=== PATIENT | female | born 1945 | race American Indian/Alaskan Native ===

== ENCOUNTER 2019-12-28 08:55 | Emergency (ER) | payer MEDICARE ==
[2019-12-28 10:10] LABS: Basophils # (Auto) 0.1 K/mm3 (0.0-0.1); Basophils % (Auto) 1.1 % (0.0-1.8); Eosinophils # (Auto) 0.3 K/mm3 (0.0-0.4); Eosinophils % (Auto) 3.5 % (0.0-4.3); Hematocrit 41.5 % (30.3-42.9); Hemoglobin 13.5 gm/dl (10.1-14.3); Lymphocytes # (Auto) 2.5 K/mm3 (1.2-5.4); Mean Corpuscular HGB Conc 33 % (30-34); Mean Corpuscular Volume 87 fl (79-97); Monocytes # (Auto) 0.6 K/mm3 (0.0-0.8); Monocytes % (Auto) 7.2 % (0.0-7.3); Platelet Count 277 K/mm3 (140-440); Red Blood Count 4.79 M/mm3 (3.65-5.03); Red Cell Distribution Width 14.2 % (13.2-15.2)
--- NOTE | 2019-12-28 10:16 | XRay Report ---
CHEST 1 VIEW INDICATION / CLINICAL INFORMATION: gen weakness, body aches. COMPARISON: 10/14/2016 FINDINGS: SUPPORT DEVICES: None. HEART / MEDIASTINUM: Heart size is normal with left ventricular configuration. Thoracic aortic tortuo sity. LUNGS / PLEURA: No significant pulmonary or pleural abnormality. No pneumothorax. ADDITIONAL FINDINGS: No significant additional findings. IMPRESSION: 1. No acute findings. Signer Name: Suman Painter MD Signed: 12/28/2019 10:12 AM Workstation Name: [id number]
--- NOTE | 2019-12-28 10:28 | Emergency Department Report ---
HPI - General Chief Complaint: Weakness Time Seen by Provider: 12/28/19 10:02 - HPI HPI: 74-year-old female presents to the emergency department with a one-month history of intermittent left-sided headache and sensitivity to light. She denies any blurry vision, fever, chest pain, SOB, numbness or paresthesias, slurred speech, or any neurological deficits. This is also associated with some generalized body aches. Patient has a history of arthritis, hypertension and hyperlipidemia. She has been taking some Stanback and Tylenol for her symptoms without any relief, but the symptoms "just stop when they want to stop." She has a primary care physician but has not seen them regarding her symptoms. No recent travel or sick contacts at home. No known exposure to anyone with Covid 19. ED Past Medical Hx - Past Medical History Previous Medical History?: Yes Hx Hypertension: Yes Hx Arthritis: Yes Additional medical history: high cholestrol - Surgical History Past Surgical History?: Yes Additional Surgical History: tubal ligation. tonsillectomy. hysterectomy - Social History Smoking Status: Never Smoker Substance Use Type: None - Medications Home Medications: Home Medications Medication Instructions Recorded Confirmed Last Taken Type Acetaminophen/Codeine [Tylenol 1 tab PO Q6H PRN #10 tab 10/06/16 10/13/16 Unknown Rx /Codeine # 3 tab] Pravastatin Sodium [Pravastatin] 40 mg PO QHS 10/13/16 10/13/16 Unknown History Triamter/Hctz 37.5-25 mg 1 tab PO QDAY 10/13/16 10/13/16 Unknown History [Maxzide-25] ED Review of Systems ROS: Stated complaint: HEADACHE/ BODY ACHE Other details as noted in HPI Comment: All other systems reviewed and negative Constitutional: weakness. denies: chills, fever Eyes: other (photosensitivity). denies: eye pain, vision change ENT: denies: ear pain, throat pain Respiratory: denies: cough, shortness of breath Cardiovascular: denies: chest pain, palpitations Gastrointestinal: denies: abdominal pain, vomiting Genitourinary: denies: dysuria, discharge Musculoskeletal: denies: back pain, arthralgia Skin: denies: change in color, pruritus Neurological: headache. denies: numbness, paresthesias Physical Exam - Physical Exam Vital Signs: Vital Signs 12/28/19 09:02 Temperature 98.4 F Pulse Rate 76 Respiratory 20 Rate Blood Pressure 155/79 O2 Sat by Pulse 96 Oximetry Physical Exam: GENERAL: The patient is well-developed well-nourished. HENT: Normocephalic. Atraumatic. Patient has moist mucous membranes. EYES: Extraocular motions are intact. Pupils equal reactive to light bilaterally. No nystagmus. NECK: Supple. Trachea is midline. CHEST/LUNGS: Clear to auscultation. There is no respiratory distress noted. HEART/CARDIOVASCULAR: Regular. There is no tachycardia. ABDOMEN: Abdomen is soft, nontender. Patient has normal bowel sounds. SKIN: Skin is warm and dry. NEURO: The patient is awake, alert, and oriented. The patient is cooperative. The patient has no focal neurologic deficits. Normal speech. Cranial nerves II through XII grossly intact. No pronator drift or dysmetria. MUSCULOSKELETAL: There is no tenderness or deformity. There is no limitation range of motion. There is no evidence of acute injury. ED Course Vital Signs 12/28/19 09:02 Temperature 98.4 F Pulse Rate 76 Respiratory 20 Rate Blood Pressure 155/79 O2 Sat by Pulse 96 Oximetry ED Medical Decision Making - Lab Data Result diagrams: 12/28/19 09:52 12/28/19 09:52 - EKG Data -: EKG Interpreted by Me EKG shows normal: sinus rhythm, axis, intervals, QRS complexes, ST-T waves Rate: normal - EKG Data When compared to previous EKG there are: previous EKG unavailable Interpretation: normal EKG - Radiology Data Radiology results: report reviewed, image reviewed interpreted by me: Chest x-ray does not show any acute process. There are no pleural effusions, obvious pneumonia and there is no pneumothorax. NONENHANCED CT SCAN OF THE HEAD: INDICATION / CLINICAL INFORMATION: 74 years Female; Headache. TECHNIQUE: Routine CT head without contrast. All CT scans at this location are performed using CT dose reduction for ALARA by means of automated exposure control. COMPARISON: CT scan of the head from 10/13/2016 FINDINGS: BRAIN / INTRACRANIAL CONTENTS: No acute hemorrhage, mass effect, midline shift, hydrocephalus, or acute, large territorial infarct. No chronic infarct or focal atrophy. Normal brain volume and ventricular/sulcal size for age. Nonspecific white matter low-attenuation areas in the left parietal lobe probably due to chronic small vessel disease. High convexity cortical sulci are normal. CRANIOCERVICAL JUNCTION: No significant abnormality. ORBITS: No significant abnormality of visualized orbits. SINUSES / MASTOIDS: No significant abnormality of the visualized paranasal sinuses or mastoid air cells. ADDITIONAL FINDINGS: None. IMPRESSION: No acute parenchymal lesion in the brain CT findings remain unchanged. - Medical Decision Making This patient presents to the emergency department with a one-month history of some intermittent left-sided headache and photosensitivity. On examination the patient does not have any focal, motor or sensory deficits and her cranial nerves are intact. CT scan of the head does not show any bleed, shift, mass, ischemia, or any other acute process. Labs are unremarkable including CBC, metabolic panel, troponin. EKG did not show any signs of ST elevation ND, ischemia or dysrhythmia. Her vital signs were stable throughout her ED course. Patient does have some hypertension but is currently on medication for it. She has good outpatient follow-up with primary care. For all these reasons the patient appears safe for discharge home at this time. She was seen ambulatory in the emergency department and both appears and feels stable. The patient was given outpatient referral for neurology. She will return to the ER with any worsening of her symptoms or any acute distress. Critical Care Time: No Critical care attestation.: If time is entered above; I have spent that time in minutes in the direct care of this critically ill patient, excluding procedure time. ED Disposition Clinical Impression: Intermittent headache Hypertension Qualifiers: Hypertension type: essential hypertension Qualified Code(s): I10 - Essential (primary) hypertension Disposition: TO HOME OR SELFCARE Is pt being admited?: No Condition: Stable Instructions: Acute Headache (ED), Hypertension (ED) Additional Instructions: Please follow-up with your primary care physician in the next few days. Return to the emergency department with any worsening of your symptoms or any acute distress. I am giving you a referral for a local neurologist, Dr. Bretrand, to follow-up regar ding your intermittent headaches. Take your blood pressure medications as prescribed. Try and stay away from foods that are high in salt and caffeinated products. Keep a blood pressure log. Referrals: THIAGO BERTRAND MD [Referring] - 3-5 Days PCP, Your [Other] - 3-5 Days Time of Disposition: 11:26
[2019-12-28 10:34] LABS: Creatine Kinase MB 2.1 ng/mL (0.0-4.0)
[2019-12-28 10:37] LABS: Alanine Aminotransferase 15 units/L (7-56); Albumin 4.1 g/dL (3.9-5); BUN/Creatinine Ratio 14; Blood Urea Nitrogen 13 mg/dL (7-17); Calcium 9.4 mg/dL (8.4-10.2); Hemolysis Index 4
--- NOTE | 2019-12-28 10:41 | Cat Scan Report ---
NONENHANCED CT SCAN OF THE HEAD: INDICATION / CLINICAL INFORMATION: 74 years Female; Headache. TECHNIQUE: Routine CT head without contrast. All CT scans at this location are performed using CT dos e reduction for ALARA by means of automated exposure control. COMPARISON: CT scan of the head from 10/13/2016 FINDINGS: BRAIN / INTRACRANIAL CONTENTS: No acute hemorrhage, mass effect, midline shift, hydrocephalus, or ac carlos, large territorial infarct. No chronic infarct or focal atrophy. Normal brain volume and ventricu lar/sulcal size for age. Nonspecific white matter low-attenuation areas in the left parietal lobe pro bably due to chronic small vessel disease. High convexity cortical sulci are normal. CRANIOCERVICAL JUNCTION: No significant abnormality. ORBITS: No significant abnormality of visualized orbits. SINUSES / MASTOIDS: No significant abnormality of the visualized paranasal sinuses or mastoid air leah ls. ADDITIONAL FINDINGS: None. IMPRESSION: No acute parenchymal lesion in the brain CT findings remain unchanged. Signer Name: Jadiel Cho MD Signed: 12/28/2019 10:36 AM Workstation Name: [id number]
[2019-12-28] MEDS ORDERED: POTASSIUM CHLORIDE ER 20 MEQ TAB PO ONE (10:45)
[2019-12-28] MEDS ORDERED: MAGNESIUM OXIDE 400 MG TAB PO ONE (11:30)
[2019-12-28 12:05] VITALS: BP 163/76
== END 2019-12-28 12:01 | disposition home or self-care (01) ==
LOC: ED 08:55
DX: R51 Headache (principal); I10 Essential (primary) hypertension; M19.91 Primary osteoarthritis, unspecified site; E78.00 Pure hypercholesterolemia, unspecified; Z90.710 Acquired absence of both cervix and uterus; Z90.89 Acquired absence of other organs; Z98.51 Tubal ligation status; Z79.899 Other long term (current) drug therapy
CPT/HCPCS: 36415; 70450; 71045; 80053; 82550; 82553; 83735; 84484; 85025; 93005

== ENCOUNTER 2021-07-05 08:13 | Emergency (ER) | payer MEDICARE ==
--- NOTE | 2021-07-05 09:20 | Emergency Department Report ---
Blank Doc - Documentation Documentation: This is a 75-year-old female that presents with mid and lower back pain times several days. Patient stated the past couple days is getting worse and was seen by her patient stated seeing her primary care doctor and was told that she has a bladder infection. Patient stated symptoms since then has been getting worse. Denies any injuries or trauma. 1- This is a initial triage assessment/medical screening only. Full assessment and work-up will be completed once the patient is in proper hospital gown, ED bed and in a private room setting. This initial assessment/diagnostic orders/clinical plan/ treatment(s) is/are subject to change based on pt's health status, clinical progression and re-assessment by fellow clinical providers in the ED. Further treatment and workup at subsequent clinical providers discretion. Patient/guardians urged not to elope from ED as their condition may be serious if not clinically assessed and managed. 2-cardiac nurse practitioner and workup The patient was evaluated in the emergency department for symptoms described in the history of present illness. He/she was evaluated in the context of the global COVID-19 pandemic, which necessitated consideration that the patient might be at risk for infection with the virus that causes COVID-19. Inst itutional protocols and algorithms that pertain to the evaluation of patients at risk for COVID-19 are in a state of rapid change based on information released by regulatory bodies including the CDC and federal and state organizations. These policies and algorithms were followed during the patient's care in the emergency department. Please note that these policies, procedures and recommendations changed on a rapid basis.
[2021-07-05 09:46] LABS: Basophils # (Auto) 0.2 K/mm3 (0.0-0.1); Basophils % (Auto) 1.8 % (0.0-1.8); Eosinophils # (Auto) 0.3 K/mm3 (0.0-0.4); Hematocrit 42.5 % (30.3-42.9); Hemoglobin 13.7 gm/dl (10.1-14.3); Lymphocytes # (Auto) 2.5 K/mm3 (1.2-5.4); Lymphocytes % (Auto) 25.1 % (13.4-35.0); Mean Corpuscular HGB Conc 32 % (30-34); Mean Corpuscular Volume 87 fl (79-97); Monocytes # (Auto) 0.9 K/mm3 (0.0-0.8); Monocytes % (Auto) 8.7 % (0.0-7.3); Platelet Count 271 K/mm3 (140-440); Red Blood Count 4.89 M/mm3 (3.65-5.03); Red Cell Distribution Width 13.6 % (13.2-15.2)
[2021-07-05 09:49] LABS: Bacteria,Urine 1+ /HPF (Negative); Bilirubin,Urine NEG (Negative); Blood,Urine NEG (Negative); Color,Urine Straw (Yellow); Protein,Urine <15 mg/dL mg/dL (Negative); Urobilinogen,Urine < 2.0 mg/dL (<2.0)
[2021-07-05 09:56] LABS: INR 0.89 (0.87-1.13)
[2021-07-05 09:57] LABS: Partial Thromboplastin Time 33.3 Sec. (24.2-36.6)
--- NOTE | 2021-07-05 10:05 | XRay Report ---
CHEST 2 VIEWS INDICATION: Chest Pain. COMPARISON: 12/28/2019 FINDINGS: Support devices: None. Heart: Within normal limits. Lungs/Pleura: No acute air space or interstitial disease. No significant pleural effusion. IMPRESSION: No acute findings. Signer Name: Jonathan Bhandari MD Signed: 07/05/2021 10:01 AM Workstation Name: [id number]
[2021-07-05 10:10] LABS: Alanine Aminotransferase 14 units/L (7-56); Albumin 3.8 g/dL (3.9-5); Blood Urea Nitrogen 15 mg/dL (7-17); Hemolysis Index 18
[2021-07-05 10:11] LABS: BUN/Creatinine Ratio 21
[2021-07-05] MEDS ORDERED: SODIUM CHLORIDE 0.9% 1000 ML 1,000 ML IV ONE (11:22)
[2021-07-05] MEDS ORDERED: KETOROLAC 30 MG/1 ML INJ IV ONE (11:22)
[2021-07-05] MEDS ORDERED: POTASSIUM CHLORIDE ER 20 MEQ TAB PO ONE (11:23)
--- NOTE | 2021-07-05 11:26 | Emergency Department Report ---
HPI - General Chief Complaint: Back Pain/Injury Time Seen by Provider: 07/05/21 09:14 - HPI HPI: 75-year-old female with history of hypertension, hyperlipidemia, and arthritis presents complaining of approximately 5 days of mid/left-sided low back pain. The patient states that on Tuesday she began to have a dull aching pain in her mid low back. On the pain got worse and radiated into her groin. She describes the pain as a pulling sensation. She saw her primary care doctor and was told that she has a bladder infection. She was given antibiotics which she has been taking since then. However, she says the pain is gotten worse to the point where she can no longer walk and has been using a wheelchair. She denies developing any weakness but says that the disturbance in her walking is because of the pain itself. Denies recent trauma. Denies any other associated symptoms other than the pain including fever/chills, headache, vision change, chest pain, shortness of breath, abdominal pain, nausea/vomiting, dysuria, hematuria, freq uency, vaginal discharge, radiation of pain down the back of her LE, focal weakness, sensory changes, or any other complaints. She has intermittently been taking aspirin without significant relief. There are no known aggravating or alleviating factors. ED Past Medical Hx - Past Medical History Previous Medical History?: Yes Hx Hypertension: Yes Hx Arthritis: Yes Additional medical history: high cholestrol - Surgical History Past Surgical History?: Yes Additional Surgical History: tubal ligation. tonsillectomy. hysterectomy - Social History Smoking Status: Never Smoker Substance Use Type: None - Medications Home Medications: Home Medications Medication Instructions Recorded Confirmed Last Taken Type Acetaminophen/Codeine [Tylenol 1 tab PO Q6H PRN #10 tab 10/06/16 10/13/16 Unknown Rx /Codeine # 3 tab] Pravastatin Sodium [Pravastatin] 40 mg PO QHS 10/13/16 10/13/16 Unknown History Triamter/Hctz 37.5-25 mg 1 tab PO QDAY 10/13/16 10/13/16 Unknown History [Maxzide-25] Cyclobenzaprine [Flexeril] 10 mg PO TID PRN #15 tablet 07/05/21 Unknown Rx cephALEXin [Keflex] 500 mg PO TID #30 cap 07/05/21 Unknown Rx ED Review of Systems ROS: Stated complaint: BACK PAIN Other details as noted in HPI Constitutional: denies: chills, fever Eyes: denies: eye pain, vision change ENT: denies: throat pain, congestion Respiratory: denies: cough, shortness of breath Cardiovascular: denies: chest pain, palpitations Gastrointestinal: other (left flank pain). denies: abdominal pain, nausea, vomiting Genitourinary: denies: dysuria, hematuria, discharge Musculoskeletal: back pain Skin: denies: rash, lesions Neurological: denies: headache, weakness, numbness, paresthesias Hematological/Lymphatic: denies: easy bleeding Physical Exam - Physical Exam Vital Signs: Vital Signs 07/05/21 08:16 Temperature 98.3 F Pulse Rate 80 Respiratory 16 Rate Blood Pressure 147/70 O2 Sat by Pulse 95 Oximetry Physical Exam: GENERAL: Well developed and well nourished. No acute distress HEAD: Normocephalic. No obvious signs of trauma. ENT: Dry mucous membranes. EYES: Extraocular movements are intact. Pupils are equal round and reactive to light bilaterally NECK: Supple. Full ROM is intact. Trachea is midline. LUNGS: Nonlabored breathing. Equal chest rise bilaterally. Clear to auscultation bilaterally. CARDIOVASCULAR: Regular rate and rhythm. No murmurs or rubs. VASCULAR: Cap refill < 2 seconds ABDOMEN: Abdomen is soft and nondistended. There is no significant tenderness, guarding or rebound. SKIN: Skin is warm and dry NEURO: Patient is awake, alert, and oriented. 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 No focal deficits. Normal motor and sensory exam throughout. Normal speech. Negative straight leg raise bilaterally. MUSCULOSKELETAL: No obvious deformities. No significant tenderness. Normal ROM throughout. BACK/SPINE: No midline tenderness or step-offs of the C/T/L spine. No costovertebral angle tenderness. ED Course Vital Signs 07/05/21 08:16 Temperature 98.3 F Pulse Rate 80 Respiratory 16 Rate Blood Pressure 147/70 O2 Sat by Pulse 95 Oximetry ED Medical Decision Making - Lab Data Result diagrams: 07/05/21 09:27 07/05/21 09:27 Lab Results 07/05/21 07/05/21 07/05/21 Range/Units 09:27 09:27 09:27 WBC 10.0 (4.5-11.0) K/mm3 RBC 4.89 (3.65-5.03) M/mm3 Hgb 13.7 (10.1-14.3) gm/dl Hct 42.5 (30.3-42.9) % MCV 87 (79-97) fl MCH 28 (28-32) pg MCHC 32 (30-34) % RDW 13.6 (13.2-15.2) % Plt Count 271 (140-440) K/mm3 Lymph % (Auto) 25.1 (13.4-35.0) % Stewart % (Auto) 8.7 H (0.0-7.3) % Eos % (Auto) 3.0 (0.0-4.3) % Baso % (Auto) 1.8 (0.0-1.8) % Lymph # (Auto) 2.5 (1.2-5.4) K/mm3 Stewart # (Auto) 0.9 H (0.0-0.8) K/mm3 Eos # (Auto) 0.3 (0.0-0.4) K/mm3 Baso # (Auto) 0.2 H (0.0-0.1) K/mm3 Seg Neutrophils % 61.4 (40.0-70.0) % Seg Neutrophils # 6.1 (1.8-7.7) K/mm3 PT 13.1 (12.2-14.9) Sec. INR 0.89 (0.87-1.13) APTT 33.3 (24.2-36.6) Sec. Sodium 142 (137-145) mmol/L Potassium 3.3 L (3.6-5.0) mmol/L Chloride 102.2 (98-107) mmol/L Carbon Dioxide 25 (22-30) mmol/L Anion Gap 18 mmol/L BUN 15 (7-17) mg/dL Creatinine 0.7 (0.6-1.2) mg/dL Estimated GFR > 60 ml/min BUN/Creatinine Ratio 21 % Glucose 93 (65-100) mg/dL Calcium 9.0 (8.4-10.2) mg/dL Total Bilirubin 0.20 (0.1-1.2) mg/dL AST 16 (5-40) units/L ALT 14 (7-56) units/L Alkaline Phosphatase 84 (35-129) units/L Troponin T < 0.010 (0.00-0.029) ng/mL Total Protein 7.2 (6.3-8.2) g/dL Albumin 3.8 L (3.9-5) g/dL Albumin/Globulin Ratio 1.1 % Urine Color (Yellow) Urine Turbidity (Clear) Urine pH (5.0-7.0) Ur Specific [place] (1.003-1.030) Urine Protein (Negative) mg/dL Urine Glucose (UA) (Negative) mg/dL Urine Ketones (Negative) mg/dL Urine Blood (Negative) Urine Nitrite (Negative) Urine Bilirubin (Negative) Urine Urobilinogen (<2.0) mg/dL Ur Leukocyte Esterase (Negative) Urine WBC (Auto) (0.0-6.0) /HPF Urine RBC (Auto) (0.0-6.0) /HPF U Epithel Cells (Auto) (0-13.0) /HPF Urine Bacteria (Auto) (Negative) /HPF Ur Transition Epith Cell /HPF 07/05/21 07/05/21 Range/Units 13:10 Unknown WBC (4.5-11.0) K/mm3 RBC (3.65-5.03) M/mm3 Hgb (10.1-14.3) gm/dl Hct (30.3-42.9) % MCV (79-97) fl MCH (28-32) pg MCHC (30-34) % RDW (13.2-15.2) % Plt Count (140-440) K/mm3 Lymph % (Auto) (13.4-35.0) % Stewart % (Auto) (0.0-7.3) % Eos % (Auto) (0.0-4.3) % Baso % (Auto) (0.0-1.8) % Lymph # (Auto) (1.2-5.4) K/mm3 Stewart # (Auto) (0.0-0.8) K/mm3 Eos # (Auto) (0.0-0.4) K/mm3 Baso # (Auto) (0.0-0.1) K/mm3 Seg Neutrophils % (40.0-70.0) % Seg Neutrophils # (1.8-7.7) K/mm3 PT (12.2-14.9) Sec. INR (0.87-1.13) APTT (24.2-36.6) Sec. Sodium (137-145) mmol/L Potassium (3.6-5.0) mmol/L Chloride (98-107) mmol/L Carbon Dioxide (22-30) mmol/L Anion Gap mmol/L BUN (7-17) mg/dL Creatinine (0.6-1.2) mg/dL Estimated GFR ml/min BUN/Creatinine Ratio % Glucose (65-100) mg/dL Calcium (8.4-10.2) mg/dL Total Bilirubin (0.1-1.2) mg/dL AST (5-40) units/L ALT (7-56) units/L Alkaline Phosphatase (35-129) units/L Troponin T < 0.010 (0.00-0.029) ng/mL Total Protein (6.3-8.2) g/dL Albumin (3.9-5) g/dL Albumin/Globulin Ratio % Urine Color Straw (Yellow) Urine Turbidity Slightly-cloudy (Clear) Urine pH 7.0 (5.0-7.0) Ur Specific [place] 1.005 (1.003-1.030) Urine Protein <15 mg/dl (Negative) mg/dL Urine Glucose (UA) Neg (Negative) mg/dL Urine Ketones Neg (Negative) mg/dL Urine Blood Neg (Negative) Urine Nitrite Neg (Negative) Urine Bilirubin Neg (Negative) Urine Urobilinogen < 2.0 (<2.0) mg/dL Ur Leukocyte Esterase Tr (Negative) Urine WBC (Auto) 3.0 (0.0-6.0) /HPF Urine RBC (Auto) 3.0 (0.0-6.0) /HPF U Epithel Cells (Auto) 17.0 H (0-13.0) /HPF Urine Bacteria (Auto) 1+ (Negative) /HPF Ur Transition Epith Cell 1 /HPF - EKG Data -: EKG Interpreted by Ms - EKG Data 07/05/21 13:39 Normal sinus rhythm. Normal axis. Normal intervals. No ectopy. No significant ST segment or T wave abnormalities. - Radiology Data Radiology results: report reviewed - Medical Decision Making 75-year-old female presenting with several days of mid low back pain and left flank pain which is worsened after being diagnosed with urinary tract infection and being given antibiotics by her PCP. Pain seems to radiate to her groin. On initial assessment she is afebrile with normal vital signs. Physical examination reveals dry mucous membranes. She has a nonfocal neurologic exam throughout. She has a negative straight leg raise bilaterally. There is no midline spinal tenderness. There is no CVA tenderness. We will perform broad work-up with a full set of labs and CT of the abdomen pelvis to assess for evidence of intra-abdominal bleeding, colitis, diverticulitis, sinusitis, or other intra-abdominal abnormality to explain the patient's symptoms. We will give 1 L of IV fluids and 30 mg of Toradol and reassess frequently. Labs reveal no significant leukocytosis or anemia. Kidney function is normal and there are no significant electrolyte abnormalities with the exception of hypokalemia with potassium of 3.3 which we will replete. Urinalysis is n egative. Chest x-ray shows no acute abnormalities. On repeat assessment, the patient reports that her pain is much improved. CT of the abdomen pelvis reveal only a left adnexal cyst measuring 4.2 x 1.3 cm. Although this is small in size, given that it is on the same side and near the place where the patient reports pain, we will obtain a pelvic ultrasound with Doppler to assess blood flow to the left ovary and speak with [facility] regarding the case. At [address] Card of [facility] regarding the case. 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 Ultrasound shows normal blood flow to the ovary and benign ovarian cyst. I discussed the results with the patient and the plan for discharge home with close follow-up with her PCP. Given the possibility of urinary tract infection which has been suppressed enough to result in normal-appearing urinalysis, I asked the patient to find out what antibiotic she is taking and she found out that she has been taking Macrobid. Given that Macrobid will not treat pyelonephritis, we will plan to switch her to Keflex for 10 days. I will also give her a small amount of Flexeril. She was given precautions that Flexeril may cause drowsiness and that she needs to take the first dose at home to see her reaction before trying to take it while going about her day. Patient was given strict return precautions and expressed understanding agreement with our plan of care Critical care attestation.: If time is entered above; I have spent that time in minutes in the direct care of this critically ill patient, excluding procedure time. ED Disposition Clinical Impression: Hypokalemia, Back pain, Left ovarian cyst, UTI (urinary tract infection) Disposition: HOME / SELF CARE / HOMELESS Is pt being admited?: No Condition: Stable Instructions: Hypokalemia, Acute Back Pain, Adult, Ovarian Cyst, [id number], Chronic Back Pain Additional Instructions: During your emergency room visit an incidental left ovarian cyst was discovered. Please follow-up with an [facility] regarding this finding. Although your urine test here was negative, given the possibility of urinary tract infection you have been prescribed a new antibiotic. Discontinue use of the previous antibiotic that was prescribed by your doctor and only take the one prescribed here. I will also prescribe you a muscle relaxant called Flexeril. Please keep in mind that this medication may make you drowsy. Take the first dose at home to see how it affects you before taking it and going about your day. Return to the emergency department should you develop significantly worsening symptoms, fever, nausea/vomiting, or any other new health concerns. Prescriptions: Cyclobenzaprine [Flexeril] 10 mg PO TID PRN #15 tablet PRN Reason: Muscle Spasm cephALEXin [Keflex] 500 mg PO TID #30 cap Referrals: PRIMARY CARE, [Primary Care Provider] - 2-3 Days
--- NOTE | 2021-07-05 12:18 | Cat Scan Report ---
CT ABDOMEN AND PELVIS WITH CONTRAST INDICATION / CLINICAL INFORMATION: low back/groin pain. TECHNIQUE: Axial CT images were obtained through the abdomen and pelvis after 100 cc Omnipaque [address] scans at this location are performed using CT dose reduction for ALARA by means of automated exposure control. COMPARISON: None available. FINDINGS: LOWER CHEST: No significant abnormality. LIVER: No significant abnormality. GALLBLADDER: No significant abnormality. BILE DUCTS: No significant abnormality. PANCREAS: No significant abnormality. SPLEEN: No significant abnormality. ADRENALS: No significant abnormality. RIGHT KIDNEY / URETER: No significant abnormality. LEFT KIDNEY / URETER: No significant abnormality. STOMACH / SMALL BOWEL: Small hiatal hernia. Small bowel is nondilated. COLON: Diverticulosis without acute inflammation. APPENDIX: No significant abnormality. PERITONEUM: No free fluid. No free air. No fluid collection. LYMPH NODES: No significant adenopathy. AORTA / ARTERIES: Mild atherosclerotic calcification without acute abnormality. IVC / VEINS: No significant abnormality. URINARY BLADDER: No significant abnormality. REPRODUCTIVE ORGANS: Uterus is absent. Left adnexal cyst measuring 4.2 x 1.7 cm. ADDITIONAL FINDINGS: None. SKELETAL SYSTEM: Degenerative changes of the spine and sacroiliac joints. No aggressive osseous lesio n. IMPRESSION: 1. No acute abnormality identified. 2. Incidental left adnexal cyst, likely benign. This can be followed with outpatient ultrasound as cl inically indicated. Signer Name: Cristiano Hartley MD Signed: 07/05/2021 12:14 PM Workstation Name: [id number]
--- NOTE | 2021-07-05 15:07 | Ultrasound Report ---
ULTRASOUND PELVIS INDICATION / CLINICAL INFORMATION: evaluate flow to ovaries. TECHNIQUE: Transabdominal. Duplex Color Doppler used: Yes. COMPARISON: CT 07/05/2021 FINDINGS: RIGHT ADNEXA: Right ovary measures 4.6 x 2.3 cm. Normal color Doppler blood flow. LEFT ADNEXA: Left adnexa measures 5.7 x 3.0 x 3.4 cm. There is a left adnexal cyst measuring approxim ately 1.9 x 1.9 x 2.0 cm with no internal flow. Normal color Doppler blood flow. URINARY BLADDER: No significant abnormality. FREE FLUID: None. ADDITIONAL FINDINGS: None. IMPRESSION: 1. Left ovarian cyst without internal flow or solid component, likely representing benign ovarian cys t. If clinically indicated, this can be followed with ultrasound to ensure stability in 6-12 months. 2. No evidence of torsion. Signer Name: Cristiano Hartley MD Signed: 07/05/2021 3:03 PM Workstation Name: [id number]
[2021-07-05 16:49] VITALS: BP 134/72
--- NOTE | 2021-07-06 11:42 | Electrocardiograph Report ---
[facility] Test Date: 2021-07-05 Test Time: 13:36:02 Pat Name: MATTHEW BANKS Department: Room: Gender: F [employer]: AILYN : 1945 Requested By: KULDEEP MOSELEY Order Number: [id number] Reading MD: Alex Quintero Measurements Intervals [place] Rate: 69 P: 51 OK: 177 QRS: -5 QRSD: 98 T: 13 QT: 399 QTc: 428 Interpretive Statements Sinus rhythm No previous ECG available for comparison Electronically Signed On 07-06-2021 11:41:53 EST by Alex Quintero
== END 2021-07-05 16:35 | disposition home or self-care (01) ==
LOC: ED 08:13
DX: E87.6 Hypokalemia (principal); M54.50 Low back pain, unspecified; N83.202 Unspecified ovarian cyst, left side; N39.0 Urinary tract infection, site not specified; I10 Essential (primary) hypertension; Z90.710 Acquired absence of both cervix and uterus
CPT/HCPCS: 36415; 71046; 74177; 80053; 81001; 84484; 85025; 85610; 85730; 87040; 93005; 93976; 96361; 96374; 99285; J1885; J7030; Q9967; 93975; Q0162